=== PATIENT | male | born 1955 | race African-American/Black ===

== ENCOUNTER 2017-04-22 03:08 | Emergency (ER) | payer OTHER ==
[~2017-04-22] VITALS: Ht 175.3 cm; Wt 92.1 kg
[2017-04-22 04:16] LABS: EOSINOPHIL (%) 4.8 % (0-5); EOSINOPHIL COUNT 0.2 K/uL (0-0.3); IMMATURE GRANULOCYTE (%) 0.2 % (0.0-0.7); LYMPHOCYTE COUNT 1.7 K/uL (1.0-2.8); MCH 31.7 PG (29.0-34.0); MCHC 34.8 G/DL (30.0-36.0); MCV 91.3 FL (86-99); MEAN PLAT.VOLUME 10.1 uM^3 (9.0-12.4); MONOCYTE (%) 14.9 % (3-12); MONOCYTE COUNT 0.7 K/uL (0-0.8); NEUTROPHIL (%) 43.9 % (45-76); PLATELET COUNT 230 K/uL (156-360); RBC DIS.WIDTH-CV 12.6 % (11.8-14.6); RBC DIS.WIDTH-SD 41.7 % (39-53); RED BLOOD COUNT 4.82 M/uL (4.00-5.50); WHITE BLOOD COUNT 4.6 K/uL (4.1-10.2)
[2017-04-22 04:26] LABS: CHLORIDE 106 mEq/L (99-109); POTASSIUM 3.5 mEq/L (3.7-5.4); SODIUM 139 mEq/L (136-147)
[2017-04-22 04:28] LABS: GLUCOSE 99 mg/dL (70-99)
[2017-04-22 04:29] LABS: ANION GAP 10 MEQ/L (2-14)
[2017-04-22 04:32] LABS: GFR ESTIMATE (CALCULATED) > 59 mL/min/
[2017-04-22 04:33] LABS: UREA NITROGEN (BUN) 21 mg/dL (9-23)
[2017-04-22] MEDS ORDERED: ULTRAM50 MG PO (06:21)
[2017-04-22 06:37] VITALS: BP 129/82
== END 2017-04-22 06:46 | disposition home or self-care (01) ==
LOC: EME 03:08
PROVIDERS: Emergency Medicine
DX: N50.3 Cyst of epididymis (principal); R10.32 Left lower quadrant pain; I10 Essential (primary) hypertension
CPT/HCPCS: 74176; 76870; 80048; 81003; 85025; 99281; 99284; J1885